=== PATIENT | female | born 1990 | race Caucasian/White ===

== ENCOUNTER 2017-11-24 08:00 | Outpatient (CLI) | payer MEDICAID, OTHER | END 2017-11-24 08:01 | disposition home or self-care (01) | LOC: LAB.R 08:00 | PROVIDERS: ATTEND Obstetrics & Gynecology | DX: Z11.3 Encounter for screening for infections with a predominantly sexual mode of transmission (principal) | CPT/HCPCS: 87491; 87591 ==

== ENCOUNTER 2018-01-08 15:00 | Outpatient (CLI) | payer OTHER | END 2018-01-08 15:30 | disposition home or self-care (01) | LOC: RT.N 15:00 | PROVIDERS: ATTEND Nurse Practitioner | DX: R01.1 Cardiac murmur, unspecified (principal) | CPT/HCPCS: 93005 ==

== ENCOUNTER 2018-01-11 08:00 | Outpatient (CLI) | payer OTHER ==
[2018-01-11 19:38] LABS: BASOPHILS % (AUTO) 0.6 %; EOSINOPHILS # (AUTO) 0.2 10^3/uL (0.0-0.7); EOSINOPHILS % (AUTO) 3.1 %; LYMPHOCYTES # (AUTO) 2.4 10^3/uL (1.5-3.5); LYMPHOCYTES % (AUTO) 44.3 %; MEAN CORPUSCULAR HEMOGLOBIN 29.7 pg (27.0-31.0); MEAN CORPUSCULAR HGB CONC 33.2 g/dL (32.0-36.0); MEAN CORPUSCULAR VOLUME 89.6 fL (81.0-99.0); MEAN PLATELET VOLUME 9.4 fL (7.9-10.8); MONOCYTES # (AUTO) 0.4 10^3/uL (0.0-1.0); MONOCYTES % (AUTO) 7.6 %; NEUTROPHILS # (AUTO) 2.4 10^3/uL (1.5-6.6); NEUTROPHILS % (AUTO) 44.4 %; PLT - PLATELET COUNT 196 10^3/uL (130-450); RED CELL DISTRIBUTION WIDTH 13.3 % (12.0-15.0); WHITE BLOOD COUNT 5.4 x10^3/uL (4.8-10.8)
[2018-01-11 19:51] LABS: ALBUMIN 4.5 g/dL (3.2-5.5); ALBUMIN/GLOBULIN RATIO 1.6 (1.0-2.2); ALKALINE PHOSPHATASE 45 IU/L (42-121); ALT ALANINE AMINOTRANSFERASE 15 IU/L (10-60); AST ASPARTATE AMINOTRANSFERASE 17 IU/L (10-42); BILIRUBIN,TOTAL 0.5 mg/dL (0.2-1.0); BUN - BLOOD UREA NITROGEN 12 mg/dL (6-20); CALCIUM 8.6 mg/dL (8.5-10.3); CARBON DIOXIDE - CO2 24 mmol/L (21-32); CHLORIDE 105 mmol/L (101-111); CHOL/HDL RATIO 3.2 (<4.4); CHOLESTEROL 169 mg/dL; CREATININE 0.5 mg/dL (0.4-1.0); GFR - MDRD 148 (>89); GLUCOSE 84 mg/dL (70-100); HDL CHOLESTEROL 53 mg/dL; LDL CHOLESTEROL,CALCULATED 100 mg/dL; LDL/HDL RATIO 1.9 (<4.4); SODIUM 136 mmol/L (135-145); TOTAL PROTEIN 7.3 g/dL (6.7-8.2); VLDL CHOLESTEROL 16 mg/dL
== END 2018-01-11 08:01 ==
LOC: LAB.N 08:00
PROVIDERS: ATTEND Nurse Practitioner
DX: R01.1 Cardiac murmur, unspecified (principal)
CPT/HCPCS: 36415; 80053; 80061; 83721; 85025

== ENCOUNTER 2018-01-12 16:55 | Outpatient (CLI) | payer OTHER ==
--- NOTE | 2018-01-13 11:08 | Ultrasound Report ---
PELVIC ULTRASOUND: 01/12/2018 CLINICAL INDICATION: Pain. TECHNIQUE: Transabdominal pelvic ultrasound performed for global evaluation. Transvaginal pelvic ultrasound performed for detailed evaluation. Real-time scanning performed and static images obtained. FINDINGS: The uterus is anteverted, measuring 7.6 x 5.2 x 3.8 cm. An IUD is noted in the endometrial canal. The endometrium measures 7 mm. No focal myometrial lesion is seen. The ovaries are normal, with the right measuring 3.6 x 2.2 x 2.1 cm, and the left measuring 3.3 x 1.9 x 1.8 cm. No free fluid is present. IMPRESSION: NORMAL PELVIC ULTRASOUND. IUD IN PLACE. TD: 01/13/2018 11:07
== END 2018-01-12 16:56 | disposition home or self-care (01) ==
LOC: DI 16:55
PROVIDERS: ATTEND Registered Nurse
DX: R10.2 Pelvic and perineal pain (principal)
CPT/HCPCS: 76830; 76856

== ENCOUNTER 2020-03-16 17:29 | Emergency (ER) | payer OTHER ==
[2020-03-16 17:43] VITALS: BP 117/68
[2020-03-16 18:12] LABS: BILIRUBIN,URINE NEGATIVE (NEGATIVE); GLUCOSE, URINE (UA) NEGATIVE (NEGATIVE); KETONES,URINE (UA) NEGATIVE (NEGATIVE); LEUKOCYTE ESTERASE, URINE TRACE (NEGATIVE); NITRITE,URINE POSITIVE (NEGATIVE); OCCULT BLOOD,URINE LARGE (NEGATIVE); PROTEIN,URINE TRACE mg/dL (NEGATIVE); UROBILINOGEN,URINE 0.2 (NORMAL) E.U./dL (NORMAL)
[2020-03-16 18:15] LABS: CLARITY,URINE CLOUDY (CLEAR); HCG UR QUAL NEGATIVE
[2020-03-16 18:25] LABS: BACTERIA,URINE Many /HPF (None Seen); SQUAMOUS EPITHELIAL CELL,UR NONE SEEN (<= Few)
[2020-03-16] MEDS ORDERED: PHENAZOPYRIDINE 100 MG TABLET PO STA (18:27)
[2020-03-16] MEDS ORDERED: NITROFURANTOIN MACRO 100 MG CAPSULE PO STA (18:27)
--- NOTE | 2020-03-16 18:29 | ED Physician Documentation ---
History of Present Illness - Stated complaint Stated Complaint: FEMAL - Chief complaint Chief Complaint: General - History obtained from History obtained from: Patient - History of Present Illness Timing: Today Pain level max: 3 Pain level now: 3 - Additonal information Additional information: Patient with dysuria, urinary frequency that started today. No back pain. No abdominal pain. No nausea. No vomiting. No fever. Nothing makes it better. Worse with urination. No vaginal bleeding or discharge Review of Systems Constitutional: denies: Fever, Chills Respiratory: denies: Cough GI: denies: Abdominal Pain, Vomiting, Diarrhea : reports: Dysuria Skin: denies: Rash Musculoskeletal: denies: Neck pain, Back pain Neurologic: denies: Headache PD PAST MEDICAL HISTORY - Past Medical History Past Medical History: No - Past Surgical History Past Surgical History: No - Present Medications Home Medications: Ambulatory Orders Medication Instructions Recorded Confirmed Nitrofurantoin Monohyd/M-Cryst 100 mg PO BID #10 capsule 03/16/20 [Macrobid 100 mg Capsule] Phenazopyridine HCl [Pyridium] 200 mg PO TID PRN #6 tablet 03/16/20 - Social History Does the pt smoke?: No Smoking Status: Never smoker Does the pt drink ETOH?: No Does the pt have substance abuse?: No - Immunizations Immunizations are current?: Yes PD ED PE NORMAL - Vitals Vital signs reviewed: Yes - General General: Alert and oriented X 3, No acute distress - HEENT HEENT: Moist mucous membranes - Neck Neck: Supple, no meningeal sign - Abdomen Abdomen: Soft, Non tender, Non distended - Back Back: No CVA TTP - Derm Derm: Warm and dry - Neuro Neuro: Alert and oriented X 3 Results - Vitals Vitals: Vital Signs - 24 hr 03/16/20 17:42 Temperature 36.8 C Heart Rate 81 Respiratory 18 Rate Blood Pressure 117/68 O2 Saturation 99 Oxygen O2 Source Room air - Labs Labs: Laboratory Tests 03/16/20 18:07 Urine Color YELLOW Urine Clarity CLOUDY Urine pH 7.0 Ur Specific [place] 1.020 Urine Protein TRACE Urine Glucose (UA) NEGATIVE Urine Ketones NEGATIVE Urine Occult Blood LARGE H Urine Nitrite POSITIVE H Urine Bilirubin NEGATIVE Urine Urobilinogen 0.2 (NORMAL) Ur Leukocyte Esterase TRACE H Urine RBC 11-25 H Urine WBC 6-10 H Ur Squamous Epith Cells NONE SEEN Urine Bacteria Many H Ur Microscopic Review INDICATED Urine Culture Comments INDICATED Urine HCG, Qual NEGATIVE PD MEDICAL DECISION MAKING - ED course Complexity details: reviewed results, considered differential, d/w patient ED course: Patient with a UTI. No evidence of pyelonephritis. She is well-appearing, nontoxic. Afebrile. We will place on antibiotics and have her follow-up with her doctor. Patient counseled regarding signs and symptoms for which I believe and urgent re-evaluation would be necessary. Patient with good understanding of and agreement to plan and is comfortable going home at this time This document was made in part using voice recognition software. While efforts are made to proofread this document, sound alike and grammatical errors may occur. Departure - Departure Disposition: Home, Self Care Clinical Impression: UTI (urinary tract infection) Qualifiers: Urinary tract infection type: acute cystitis Hematuria presence: without hematuria Qualified Code(s): N30.00 - Acute cystitis without hematuria Condition: Good Instructions: ED UTI Cystitis Female Follow-Up: your,doctor as needed [Other] Prescriptions: Nitrofurantoin Monohyd/M-Cryst [Macrobid 100 mg Capsule] 100 mg PO BID #10 capsule Phenazopyridine HCl [Pyridium] 200 mg PO TID PRN #6 tablet PRN Reason: dysuria Comments: Take all antibiotics until gone. Return if you worsen. Follow-up with your doctor for further care as needed. Discharge Date/Time: 03/16/20 18:36
== END 2020-03-16 18:36 | disposition home or self-care (01) ==
LOC: ED 17:29
DX: N30.00 Acute cystitis without hematuria (principal)
CPT/HCPCS: 81001; 81025; 87086; 87181; 99283; 99284; A9270; 81003

== ENCOUNTER 2020-06-02 22:49 | Emergency (ER) | payer OTHER ==
[2020-06-02] MEDS ORDERED: IBUPROFEN 600 MG TABLET PO STA (23:35)
--- NOTE | 2020-06-02 23:46 | ED Physician Documentation ---
History of Present Illness - Stated complaint Stated Complaint: NECK SWELLING/FEVER - Chief complaint Chief Complaint: Heent - History obtained from History obtained from: Patient - Additonal information Additional information: Is a 29-year-old female with a history of parotiditis. Comes in tonight saying she has left-sided parotiditis without headache or severe neck pain she does report a fever. She reports left jaw swelling that similar with her previous parotiditis. Denies any other complaints. Review of Systems Constitutional: reports: Fever Eyes: reports: Reviewed and negative Ears: reports: Reviewed and negative Nose: reports: Reviewed and negative Throat: reports: Other (Left parotid and submandibular gland swelling) Cardiac: reports: Reviewed and negative Respiratory: reports: Reviewed and negative GI: reports: Reviewed and negative : reports: Reviewed and negative Skin: reports: Reviewed and negative Musculoskeletal: reports: Reviewed and negative Neurologic: reports: Reviewed and negative Psychiatric: reports: Reviewed and negative Endocrine: reports: Reviewed and negative Immunocompromised: reports: Reviewed and negative PD PAST MEDICAL HISTORY - Past Medical History Past Medical History: Yes Respiratory: Asthma - Past Surgical History Past Surgical History: No - Present Medications Home Medications: Ambulatory Orders Medication Instructions Recorded Confirmed Clindamycin HCl [Clindamycin 300MG 300 mg PO QID 14 Days #56 capsule 06/03/20 CAP] - Allergies Allergies/Adverse Reactions: Allergies Allergy/AdvReac Type Severity Reaction Status Date / Time No Known Drug Allergies Allergy Verified 06/02/20 22:59 - Social History Does the pt smoke?: No Smoking Status: Never smoker Does the pt drink ETOH?: Yes Does the pt have substance abuse?: No - Immunizations Immunizations are current?: Yes - POLST Patient has POLST: No PD ED PE NORMAL - Vitals Vital signs reviewed: Yes - General General: Alert and oriented X 3, No acute distress, Well developed/nourished - HEENT HEENT: Atraumatic, PERRL, EOMI, Ears normal, Moist mucous membranes, Pharynx benign, Dentition benign, Other - Neck Neck: Supple, no meningeal sign, Other (The neck is supple there is no anterior posterior cervical lymphadenopathy there is left-sided submandibular lymphadenopathy without crepitus or fluctuance or induration no occipital lymphadenopathy the neck is supple) - Cardiac Cardiac: RRR, No murmur - Respiratory Respiratory: Clear bilaterally - Abdomen Abdomen: Normal bowel sounds, Soft, Non tender, Non distended, No organomegaly - Derm Derm: Warm and dry - Extremities Extremities: No deformity - Neuro Neuro: Alert and oriented X 3 - Psych Psych: Normal mood, Normal affect Results - Vitals Vitals: Vital Signs - 24 hr 06/02/20 06/03/20 06/03/20 22:55 00:09 01:00 Temperature 39.1 C H 37.9 C H 37.6 C H Heart Rate 102 H 90 87 Respiratory 18 16 14 Rate Blood Pressure 129/81 H 116/71 122/67 O2 Saturation 96 99 99 06/03/20 01:55 Temperature 37.2 C Heart Rate 82 Respiratory 16 Rate Blood Pressure 122/61 O2 Saturation 100 Oxygen O2 Source Room air - Labs Labs: Laboratory Tests 06/02/20 06/02/20 06/02/20 23:45 23:45 23:45 WBC 8.6 RBC 4.60 Hgb 14.5 Hct 42.3 MCV 92.0 MCH 31.5 H MCHC 34.3 RDW 11.8 L Plt Count 168 MPV 10.7 Neut # (Auto) 6.2 Lymph # (Auto) 1.8 [place] # (Auto) 0.6 Eos # (Auto) 0.0 Baso # (Auto) 0.0 Absolute Nucleated RBC 0.00 Nucleated RBC % 0.0 PT 14.9 H INR 1.3 H APTT 23.1 L Sodium 135 Potassium 3.4 L Chloride 104 Carbon Dioxide 21 Anion Gap 10.0 BUN 11 Creatinine 0.5 Estimated GFR (MDRD) 146 Glucose 107 H Lactic Acid Calcium 8.5 Total Bilirubin 0.6 AST 15 ALT 13 Alkaline Phosphatase 59 Total Creatine Kinase 63 Total Protein 7.6 Albumin 4.3 Globulin 3.3 Albumin/Globulin Ratio 1.3 Lipase 40 06/02/20 23:45 WBC RBC Hgb Hct MCV MCH MCHC RDW Plt Count MPV Neut # (Auto) Lymph # (Auto) [place] # (Auto) Eos # (Auto) Baso # (Auto) Absolute Nucleated RBC Nucleated RBC % PT INR APTT Sodium Potassium Chloride Carbon Dioxide Anion Gap BUN Creatinine Estimated GFR (MDRD) Glucose Lactic Acid 1.1 Calcium Total Bilirubin AST ALT Alkaline Phosphatase Total Creatine Kinase Total Protein Albumin Globulin Albumin/Globulin Ratio Lipase PD MEDICAL DECISION MAKING - ED course Complexity details: considered differential ED course: Patient has a history of parotiditis. Her exam is consistent with parotiditis her lactate is negative she is now afebrile after treatment with ibuprofen. There is no significant leukocytosis blood cultures were sent she was treated with IV clindamycin and provided a prescription for oral clindamycin. She is going to follow-up with her primary care provider on Thursday. She also states that she has an ear nose and throat consult that she will call to be evaluated next week she should return for fevers worsening pain or any concerns. Departure - Departure Disposition: 01 Home, Self Care Clinical Impression: Parotiditis Condition: Stable Instructions: ED Submandibular Gland Infec Follow-Up: MIRTA SUTHERLAND, MSN, [employer] [Primary Care Provider] - Prescriptions: Clindamycin HCl [Clindamycin 300MG CAP] 300 mg PO QID 14 Days #56 capsule Comments: Follow-up with your primary care provider on Thursday. Take antibiotics as directed.Take Tylenol or ibuprofen as needed for pain or fever. Discharge Date/Time: 06/03/20 02:00
[2020-06-02] MEDS ORDERED: SODIUM CHLORIDE 0.9% 1,000 ML IV STA (23:47)
[2020-06-02] MEDS ORDERED: CLINDAMYCIN 600 MG/50 ML 50 ML IV ONE (23:48)
[2020-06-03 00:14] LABS: BASOPHILS % (AUTO) 0.3 %; EOSINOPHILS % (AUTO) 0.1 %; HGB - HEMOGLOBIN 14.5 g/dL (12.0-16.0); LYMPHOCYTES # (AUTO) 1.8 10^3/uL (1.5-3.5); LYMPHOCYTES % (AUTO) 20.7 %; MEAN CORPUSCULAR HEMOGLOBIN 31.5 pg (27.0-31.0); MEAN CORPUSCULAR HGB CONC 34.3 g/dL (32.0-36.0); MEAN PLATELET VOLUME 10.7 fL (7.9-10.8); MONOCYTES # (AUTO) 0.6 10^3/uL (0.0-1.0); MONOCYTES % (AUTO) 7.2 %; NEUTROPHILS # (AUTO) 6.2 10^3/uL (1.5-6.6); NEUTROPHILS % (AUTO) 71.4 %; PLT - PLATELET COUNT 168 10^3/uL (130-450); RED CELL DISTRIBUTION WIDTH 11.8 % (12.0-15.0); WHITE BLOOD COUNT 8.6 x10^3/uL (4.8-10.8)
[2020-06-03 00:23] LABS: ALBUMIN 4.3 g/dL (3.2-5.5); ALBUMIN/GLOBULIN RATIO 1.3 (1.0-2.2); BILIRUBIN,TOTAL 0.6 mg/dL (0.2-1.0); CALCIUM 8.5 mg/dL (8.5-10.3); CREATININE 0.5 mg/dL (0.4-1.0); TOTAL PROTEIN 7.6 g/dL (6.7-8.2)
[2020-06-03 00:30] LABS: INR 1.3 (0.8-1.2); PT - PROTHROMBIN TIME 14.9 secs (9.9-12.6)
[2020-06-03 00:37] LABS: PARTIAL THROMBOPLASTIN TIME 23.1 secs (24.9-33.3)
[2020-06-03 02:03] VITALS: BP 122/61
== END 2020-06-03 02:00 | disposition home or self-care (01) ==
LOC: ED 22:49
DX: K11.20 Sialoadenitis, unspecified (principal)
CPT/HCPCS: 36415; 80053; 82550; 83605; 83690; 85025; 85610; 85730; 87040; 96365; 99283; 99284; A9270; 81001; 81003; 81025; 87086

== ENCOUNTER 2021-08-12 10:50 | Emergency (ER) | payer OTHER ==
[2021-08-12 11:03] VITALS: BP 122/74
--- NOTE | 2021-08-12 11:27 | XRAY Report ---
PROCEDURE: Ankle 3 View RT INDICATIONS: injury/pain TECHNIQUE: 3 views of the ankle were acquired. COMPARISON: None FINDINGS: Bones: No fractures or dislocations. Ankle mortise is normally aligned. No suspicious bony lesions . Soft tissues: No tibiotalar joint effusion. Achilles tendon appears normal. IMPRESSION: No fracture. No osseous lesion. If there are persistent symptoms or continued clinical concern for pa thology, then repeat plain film radiographs (7-10 days) or advanced imaging (CT, MR, bone scan) shoul d be considered for further evaluation. Reviewed by: Ivette Henderson MD, PhD on 08/12/2021 11:26 AM PDT Approved by: Ivette Henderson MD, PhD on 08/12/2021 11:26 AM PDT Station ID: [id number]
--- NOTE | 2021-08-12 11:52 | ED Physician Documentation ---
PD HPI LOWER EXT INJURY - Stated complaint Stated Complaint: RT ANKLE INJURY - Chief complaint Chief Complaint: Trauma Ext - History obtained from History obtained from: Patient - Additional information Additional information: Patient comes emergency department chief complaint of right ankle pain after twisting injury. Patient states that she was putting some potatoes on a shelf at work when she caught her ankle between a gap into shelves and fell backwards, twisting her ankle in the process. She states it has been painful and swollen since. The incident just happened this morning. No other complaints at this time. No prior injury to the ankle. No other injuries. Review of Systems Ten Systems: 10 systems reviewed and negative Constitutional: reports: Reviewed and negative Eyes: reports: Reviewed and negative Ears: reports: Reviewed and negative Nose: reports: Reviewed and negative Throat: reports: Reviewed and negative Cardiac: reports: Reviewed and negative Respiratory: reports: Reviewed and negative GI: reports: Reviewed and negative : reports: Reviewed and negative Skin: reports: Reviewed and negative Musculoskeletal: reports: Joint pain, Joint swelling, Pain with weight bearing Neurologic: reports: Reviewed and negative Psychiatric: reports: Reviewed and negative Endocrine: reports: Reviewed and negative Immunocompromised: reports: Reviewed and negative PD PAST MEDICAL HISTORY - Past Medical History Past Medical History: Yes Respiratory: Asthma - Past Surgical History Past Surgical History: No - Present Medications Home Medications: Ambulatory Orders Medication Instructions Recorded Confirmed Clindamycin HCl [Clindamycin 300MG 300 mg PO QID 14 Days #56 capsule 06/03/20 CAP] - Allergies Allergies/Adverse Reactions: Allergies Allergy/AdvReac Type Severity Reaction Status Date / Time No Known Drug Allergies Allergy Verified 08/12/21 11:02 - Social History Does the pt smoke?: No Smoking Status: Never smoker Does the pt drink ETOH?: Yes Does the pt have substance abuse?: No - Immunizations Immunizations are current?: Yes - POLST Patient has POLST: No PD ED PE NORMAL - Vitals Vital signs reviewed: Yes - General General: Alert and oriented X 3, No acute distress - HEENT HEENT: Atraumatic, PERRL, EOMI, Moist mucous membranes - Neck Neck: Supple, no meningeal sign - Cardiac Cardiac: Strong equal pulses - Respiratory Respiratory: No respiratory distress, Clear bilaterally - Derm Derm: Normal color, Warm and dry, No rash - Extremities Extremities: No deformity, Other (Mild edema over anterior talofibular ligaments of right foot. No deformity. Moderately limited range of motion of foot and ankle, secondary to pain. No step-off.) - Neuro Neuro: Alert and oriented X 3 - Psych Psych: Normal mood, Normal affect Results - Vitals Vitals: Vital Signs - 24 hr 08/12/21 10:59 Temperature 36.7 C Heart Rate 97 Respiratory 14 Rate Blood Pressure 122/74 O2 Saturation 99 Oxygen O2 Source Room air - Rads (name of study) R ankle XR Radiology: Final report received, EMP read indepedently, See rad report (Negative) PD MEDICAL DECISION MAKING - ED course Complexity details: reviewed results, re-evaluated patient, considered differential, d/w patient ED course: I discussed with the patient that her x-ray is negative and she appears to have sprained her ankle. We have placed an Aircast and given her a pair of crutches. We have discussed return to work when she feels well enough. Departure - Departure Disposition: 01 Home, Self Care Clinical Impression: Right ankle sprain Qualifiers: Encounter type: initial encounter Involved ligament of ankle: unspecified ligament Qualified Code(s): S93.401A - Sprain of unspecified ligament of right ankle, initial encounter Condition: Stable Instructions: ED Sprain Ankle Forms: Activity restrictions
== END 2021-08-12 12:39 | disposition home or self-care (01) ==
LOC: ED 10:50
DX: S93.401A Sprain of unspecified ligament of right ankle, initial encounter (principal); W01.0XXA Fall on same level from slipping, tripping and stumbling without subsequent striking against object, initial encounter; Y92.89 Other specified places as the place of occurrence of the external cause; Y99.0 Civilian activity done for income or pay
CPT/HCPCS: 99282; 99283